=== PATIENT | male | born 1965 | race Caucasian/White ===

== ENCOUNTER 2019-11-06 13:11 | Observation (INO) | payer BC, SELFPAY ==
[2019-11-06] VITALS (8 sets, daily range): BP systolic 107–126; BP diastolic 65–87; PULSE 71–90; RESP 16–22; TEMP 35.6–36.4; O2SAT 93–97; BMI 35.9
--- NOTE | ~2019-11-06 | NM_ITS ---
EXAMINATION: NM meredith stress w perfusion DATE: 11/07/2019 10:01 INDICATION: Chest pain. TECHNIQUE: Rest images were obtained following intravenous administration of 10 mCi Tc99m tetrofosmin (Myoview). The patient was infused intravenously with Lexiscan (regadenoson). Then, 33.3 mCi Tc99m t etrofosmin (Myoview) was administered intravenously, and stress images were obtained. Data was recons tructed into short axis and horizontal and vertical long axis SPECT images. Gated SPECT images were a lso obtained. COMPARISON: None. FINDINGS: There is no definite reversible or fixed perfusion abnormality to suggest ischemia or infar ction. There is no segmental wall motion abnormality. Left ventricular ejection fraction measures 7 0%. IMPRESSION: 1. No definite ischemia or infarct. 2. Normal left ventricular ejection fraction measuring 70%. Reviewed, dictated and finalized at location A.
--- NOTE | 2019-11-06 13:41 | ADMGEN ---
This patient, Regino Magaña, was admitted to IMU Room 209-01 on 11-06-2019 at 1310. Patient/family oriented to hospital policies and general routines including ID bracelet, bed and alarms, visiting hours, pain management, procedures, bathroom and other care routines, personal items, smoking policy, room service/diet, and visiting hours. Valuables list has been completed. Information on how to activate the Rapid Response Team has been discussed. Patient/Family are encouraged to report perceived risks to care and to ask questions if they do not understand what they are told or what they should do.
--- NOTE | 2019-11-06 14:04 | ECG_ITS ---
Measurements Intervals [place] Rate: 77 P: 51 AK: 166 QRS: -6 QRSD: 106 T: 39 QT: 381 QTc: 433 Interpretive Statements SINUS RHYTHM BASELINE ARTIFACT- II, III NORMAL ECG Electronically Signed On 11-06-2019 16:08:41 CDT by Boni Mayo D.O.
[2019-11-06 15:06] LABS: Troponin I < 0.012 ng/mL (0.000-0.034)
--- NOTE | 2019-11-06 15:36 | PM.IMHP ---
H&P: HPI History of Present Illness Chief complaint: chest pain <Michelle Mayorga APRN - Last Filed: 11/06/19 17:07> Narrative: Regino Magaña is a 54 year old male that presented to [facility] in [place] with episodes jaw and chest discomfort. Yesterday evening at approximately 3:00 p.m. he was watering and laying grass seed when he had a sensation that he described as pressure that started in his mouth and lower jaw that radiated down his neck to his upper chest, left arm to approximately the middle of the upper arm and slightly to the right upper chest. The episode lasted approximately 1 minute. He denied any associated diaphoresis or nausea. It was slightly hard to take in a breath and he was lightheaded. He did not think much of this episode. Today, while at work he had another episode again only lasting a minute with associated feeling of difficulty taking in a deep breath, lightheadedness and a fluttering sensation. When he had a second episode today he became very concerned, called his girlfriend and proceeded to the hospital. He had a third episode on the way to the hospital . Initial troponin was negative. EKG unremarkable. He was given aspirin and nitroglycerin paste. No further episodes today. Troponin drawn here is also negative and EKG is normal. 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 This is a very hot environment. He denies that he has been having any issues with chest pain, pressure, tightness or squeezing. Does have issues with balance and dizziness. He has had difficulty with feeling that it is hard to breathe. He had some issues back in May and June and most recently over the last few days. This document was completed by using M*Modal [employer] Direct speech recognition software, therefore, neighborhood planner variances may occur. <Michelle Mayorga APRN - Last Filed: 11/06/19 17:07> Attending addendum: I have personally reviewed the electronic medical record and personally examined the patient at bedside. I agree with the above documentation and plan of care by Michelle Mayorga NP. patient is a pleasant 54-year-old male concerning chest pain radiating to the neck spontaneously resolved. Given recurrent episodes patient presents ER for evaluation. Thus far cardiac enzymes have been negative and his EKG is unremarkable. He has risk factors including hypertension and tobacco abuse. He is currently asymptomatic. No apparent distress, alert and orient x3, lungs clear to auscultation, cardiac exam regular rate rhythm no murmurs. Abdominal exam soft, benign no edema clubbing or cyanosis. Neuro exam is nonfocal. Impression/plan: Recurrent chest pain possible anginal equivalent hypertension tobacco abuse plan for noninvasive ischemic evaluation in a.m. to assess for myocardial ischemia. NPO after midnight. All questions answered to patient's satisfaction. He agrees with plan of care as outlined. Further recommendation to follow. <Gonzales Gardner MD - Last Filed: 11/06/19 17:21> Review of Systems Constitutional: Constitutional: Denies chills, Denies excessive sweating, Reports headache(s) ( Occasional migraines with aura. Lasting approximately 20 minutes.), Reports lethargy and Denies night sweats <Michelle Mayorga APRN - Last Filed: 11/06/19 17:07> Comments: Denied weight gain or weight loss. No change in appetite. No change in activity tolerance. <Michelle Mayorga APRN - Last Filed: 11/06/19 17:07> Eyes: Eyes: Denies blurry vision, Denies diplopia and Reports requires corrective lenses <Michelle Mayorga APRN - Last Filed: 11/06/19 17:07> ENT: Reports Normal hearing present, Reports dizziness, Reports headache(s), Denies epistaxis and Denies tinnitus <Michelle Mayorga APRN - Last Filed: 11/06/19 17:07> Cardiovascular: Cardiovascular: Reports chest pain, Denies diaphoresis, Denies syncope, Denies pedal edema, Denies leg edema, Reports l
[2019-11-06 17:34] LABS: Troponin I < 0.012 ng/mL (0.000-0.034)
[2019-11-06] MEDS: lisinopriL 20 MG TABLET 40 MG PO (17:53)
[2019-11-07] VITALS: BP 129/75; PULSE 66; PULSE 88; RESP 18; TEMP 36.4; O2SAT 97
[2019-11-07 02:00] VITALS: PULSE 65
[2019-11-07 03:58] VITALS: BP 122/80; PULSE 70; RESP 18; TEMP 36.1; O2SAT 97
[2019-11-07 04:00] VITALS: PULSE 72
[2019-11-07 06:00] VITALS: PULSE 75
[2019-11-07 06:57] LABS: Cholesterol 183 mg/dL (0-200); HDL Direct 34 mg/dL; Triglycerides 204 mg/dL (<150)
[2019-11-07 07:08] LABS: LDL Cholesterol Direct 117 mg/dL
[2019-11-07 08:00] VITALS: BP 131/89; PULSE 60; PULSE 75; RESP 18; TEMP 36.6; O2SAT 98
--- NOTE | 2019-11-07 08:54 | PM.PNCARD ---
Progress Note: A&P Assessment and Plan (1) Chest pressure: Code(s): R07.89 - Other chest pain Status: Acute Assessment and Plan: Chest discomfort atypical Troponin negative x3. EKGs normal sinus rhythm with no ST-T wave abnormalities. Lexiscan pending Continue ASA 81 mg daily LDL 117. Triglycerides 204. For risk factor modification may benefit from a statin. (2) Essential hypertension: Code(s): I10 - Essential (primary) hypertension Status: Acute Assessment and Plan: Continue Lisinopril . He takes this at night. He really does not like the way it makes him feel. May try decreasing the dose to 20 mg daily and see how his blood pressure and symptoms do . (3) Tobacco use: Code(s): Z72.0 - Tobacco use Status: Acute Assessment and Plan: Smoking cessation counseling performed Additional Plan Further recommendations pending outcome of the stress test. Plan discus with Dr. Coleman 0915 11/07/2019 Time Spent With Patient Time: Spent 15 minutes with him in the stress lab th Time with patient: 15 - 25 minutes Subjective Date/time seen: 11/07/19 08:54 Seen in stress lab Interval history: Follow up for: atypical chest pain, HTN, tobacco use Date of service: 11/07/2019 Subjective: No symptoms overnight. Denied chest/jaw discomfort, shortness of breath, lightheadedness or palpitations Review of Systems Constitutional: Constitutional: Denies chills, Denies excessive sweating, Denies fatigue, Reports headache(s), Reports lethargy, Denies night sweats and Reports snoring ( Does wake himself up snoring Feels rested Partner denies apnea) Eyes: Eyes: Denies blurry vision, Denies diplopia and Reports requires corrective lenses ENT: Reports Normal hearing present, Denies dysphagia, Reports dizziness, Reports headache(s), Denies epistaxis, Reports neck pain, Reports disequilibrium, Denies tinnitus, Denies throat swelling and Denies tongue swelling Cardiovascular: Cardiovascular: Denies chest pain, Denies diaphoresis, Denies syncope, Denies pedal edema, Denies leg edema, Denies lightheadedness, Denies radiating jaw, neck or arm pain, Denies palpitations and Denies dyspnea Respiratory: Respiratory: Denies chest congestion, Denies cough, Denies hemoptysis, Denies dyspnea, Reports snoring ( Does wake himself up snoring Feels rested Partner denies apnea) and Denies wheezing Gastrointestinal: Gastrointestinal: Denies abdominal pain, Denies melena, Denies bloating, Denies change in bowel habits, Denies dysphagia and Denies heartburn Genitourinary: Genitourinary: Denies dysuria, Denies urinary frequency, Denies urinary hesitancy, Denies urinary incontinence and Denies urinary urgency Musculoskeletal: Musculoskeletal: Reports arthralgias, Denies muscle weakness and Reports neck pain Integumentary/Breasts: Skin/Breast: Denies dry skin, Denies erythema and Denies rash Neurologic: Reports Normal hearing present, Denies behavioral changes, Denies dizziness, Denies syncope, Denies headache(s) and Reports disequilibrium Psychiatric: Psychiatric: Denies anxiety, Denies behavioral changes, Denies change in appetite and Denies depression Endocrine: Endocrine: Denies cold intolerance, Denies excessive sweating, Denies fatigue, Denies flushing, Denies heat intolerance and Reports palpitations (Rare fluttering sensation) Hematologic/Lymphatic: Hematologic/Lymphatic: Denies easy bleeding and Denies easy bruising Allergic/Immunologic: Allergic/Immunologic: Denies throat swelling, Denies tongue swelling and Denies wheezing Exam Const: General: cooperative, comfortable, no acute distress, alert and awake Nutritional Appearance: obese Orientation/consciousness: patient oriented x3 Limitations: no limitations HENMT: Head: normal to inspection, normocephalic and atraumatic Ears: hearing grossly normal bilat
--- NOTE | 2019-11-07 10:00 | EST_ITS ---
Patient Info Name: Regino Magaña Age: 54 years : 1965 Gender: Male Ht: 73 in Wt: 271 lbs BSA: 2.56 m2 Exam Date: 11/07/2019 8:46 AM Exam Location: [facility] Stress Patient Status: Outpatient Admit Date: 11/06/2019 Staff Ordering Physician: Michelle Mayorga APRN Attending Provider: Gonzales Gardner MD Exercise Technologist: Gudelia Saravia RDCS Exam Type: CA stress meredith w NM Study Info Indications R07.9 - Chest pain, unspecified A regadenoson stress test was performed. Summary 1. Normal sinus rhythm - normal ECG. 2. No abnormal ST/T wave changes with exercise. 3. Myocardial perfusion imaging to be reported by Radiology. Protocol: Lexiscan Stress ECG Details Stage: REST Duration (min): 11 min : 6 sec HR (bpm): 69 SBP (mmHg): 121 DBP (mmHg): 89 Stage: REST Duration (min): 12 min : 36 sec HR (bpm): 74 SBP (mmHg): 121 DBP (mmHg): 89 Stage: STAGE 1 Duration (min): 0 min : 59 sec HR (bpm): 84 SBP (mmHg): 128 DBP (mmHg): 90 Stage: RECOVERY Duration (min): 1 min : 0 sec HR (bpm): 88 SBP (mmHg): 143 DBP (mmHg): 85 Stage: RECOVERY Duration (min): 2 min : 0 sec HR (bpm): 88 SBP (mmHg): 143 DBP (mmHg): 85 Stage: RECOVERY Duration (min): 3 min : 0 sec HR (bpm): 90 SBP (mmHg): 128 DBP (mmHg): 79 Stage: RECOVERY Duration (min): 3 min : 2 sec HR (bpm): 90 SBP (mmHg): 128 DBP (mmHg): 79 Rest HR: 74 bpm Peak HR: 93 bpm Rest Sys BP: 121 mmHg Peak Sys BP: 143 mmHg Max Pred HR: 164 bpm % Max Pred HR: 57 % Target HR: 139 bpm Max RPP: 13,299 bpm*mmHg BP Response: Normal blood pressure response Termination Reason: Completed protocol Cardiac Symptoms: None Total Time: 1 min : 0 sec Rest Finch BP: 89 mmHg Peak Finch BP: 85 mmHg Total Dose: 0.4 mg Resting ECG Normal sinus rhythm - normal ECG. Stress ECG No abnormal ST/T wave changes with exercise. Arrhythmias None. Report Signatures
[2019-11-07] MEDS: ASPIRIN 81 MG ENTERIC TABLET PO (10:34)
--- NOTE | 2019-11-07 11:31 | PM.DS ---
DS: Admitting Diagnosis Admitting Diagnosis Admitting Diagnosis: Other chest pain DS: Discharge Diagnosis Discharge Diagnosis (1) Chest pressure: Code(s): R07.89 - Other chest pain Status: Acute Assessment and Plan: Chest discomfort atypical Troponin negative x3. EKGs normal sinus rhythm with no ST-T wave abnormalities. Lexiscan: Negative for ischemia Continue ASA 81 mg daily LDL 117. Triglycerides 204. For risk factor modification may benefit from a statin. (2) Essential hypertension: Code(s): I10 - Essential (primary) hypertension Status: Acute Assessment and Plan: At goal. Decrease Lisinopril to 20 mg daily. Monitor blood pressure. (3) Tobacco use: Code(s): Z72.0 - Tobacco use Status: Acute Assessment and Plan: Tobacco cessation counseling performed DS: Summary Hospital Course Reason for hospitalization: Chest pain Hospital Course: 54-year-old male admitted through the emergency room for chest discomfort. Symptoms were somewhat atypical. Troponin negative x3. EKG unremarkable. Due to his risk factors he underwent a Lexiscan nuclear stress test which was negative for ischemia. He was not taking his lisinopril on a consistent basis as he did not like the weight min feel. Lisinopril was decreased to 20 mg daily. He is to follow up with his Primary Care Provider. He was discharged home in pain-free and stable condition. Time Spent with Patient Time attestation: Total time spent providing and/or coordinating discharge services: 20 minutes Exam Const: General: cooperative, comfortable, no acute distress, alert and awake Nutritional Appearance: obese Orientation/consciousness: patient oriented x3 Limitations: no limitations HENMT: Head: normal to inspection, normocephalic and atraumatic Ears: hearing grossly normal bilaterally and external ears normal General nose exam: Normal external nose present and no epistaxis Face and sinus: normal facial exam Mouth: Yes Normal oral and palatal mucosa present and Yes moist mucous membranes Eyes: General: appearance normal, both eyes and all related structures Conjunctivae: conjunctivae normal Sclera: sclerae normal Pupils: Equal, round and reactive pupils present Neck: Neck: normal visual inspection, trachea midline and no JVD Carotids: normal carotid upstroke Chest: Chest palpation & inspection: normal inspection of the chest and no tenderness Resp: Effort & Inspection: normal respiratory effort and able to speak in complete sentences Auscultation: clear to auscultation bilaterally Cardio: Jugular venous distension: no JVD Rate: regular rate Rhythm: regular rhythm Heart sounds: S1 normal heart sound present and S2 normal heart sound present Bruits: no abdominal aortic bruits and no carotid bruits Peripheral pulses: Peripheral pulses 2+ throughout GI: Inspection: normal to inspection and obesity Auscultation: normal bowel sounds Skin: General skin exam: normal color, no rashes or lesions noted and other (Multiple tattoos) Neuro: General: patient oriented x3 and moves all extremities Cranial nerves: Yes CN's II-XII intact bilaterally, Yes Equal, round and reactive pupils present and Yes Normal hearing present Cognition (Neuro): normal cognition Speech: normal speech Extrem: General: normal to inspection and no edema Psych: Appearance: grossly normal Mental Status: mental status grossly normal Speech and movement: Normal speech and movement present Affect: normal affect Attitude: cooperative Thought process: Normal thought process present Insight: Good insight present (Psych) Judgement: Good judgement present (Psych) DS: Data Data Completed and Pending Labs on day of discharge: Labs from last 24 tee
== END 2019-11-07 12:13 | disposition home or self-care (01) ==
PROVIDERS: Nurse Practitioner Adult Health; Admitting Provider Internal Medicine Cardiovascular Disease; Visit Provider Internal Medicine Cardiovascular Disease
DX: R07.89 Other chest pain (principal); I10 Essential (primary) hypertension; F17.220 Nicotine dependence, chewing tobacco, uncomplicated
CPT/HCPCS: 36415; 78452; 80061; 84484; 93005; 93017; A9270; A9502; G0378; G0379; J2785